=== PATIENT | male | born 1975 | race Two or more races ===

== ENCOUNTER 2021-01-20 19:29 | Emergency (ER) | payer OTHER ==
[~2021-01-20] VITALS: Ht 162.6 cm; Wt 79.8 kg
[2021-01-20] MEDS ORDERED: KETOROLAC TROMETHAMINE 30 MG/ML VIAL IV STA (20:21)
[2021-01-20] MEDS ORDERED: KETOROLAC TROMETHAMINE 30 MG/ML VIAL ONE (20:35)
[2021-01-20] MEDS ORDERED: KETOROLAC TROME10 MG PO (21:31)
[2021-01-20] MEDS ORDERED: FLOMAX0.4 MG PO (21:33)
== END 2021-01-20 22:00 | disposition home or self-care (01) ==
LOC: FSED 20:23
DX: R10.31 Right lower quadrant pain (principal); M54.5 Low back pain; N13.2 Hydronephrosis with renal and ureteral calculous obstruction
CPT/HCPCS: 74176; 80048; 80076; 81003; 85025; 99284; J1885; U0002